=== PATIENT | female | born 1950 | race Caucasian/White ===

== ENCOUNTER → 2017-10-20 | Day surgery (SDC) | payer OTHER, MEDICARE ==
[2008-02-10 09:41] VITALS: BP 140/74
--- NOTE | 2017-10-20 11:13 | Operative Report ---
Operative/Inv Procedure Report Surgery Date: 10/20/17 Name of Procedure: Right partial mastectomy with wire localization and sentinel lymph node biopsy Pre-Operative Diagnosis: Right breast cancer Post-Operative Diagnosis: Same Estimated Blood Loss: less than 50ml Surgeon/Director Of Conservation: Luna Sandra MD Anesthesia: local monitored anesthesi Specimens: [place] lymph node 2, right lumpectomy, cranial margin, caudal margin, medial margin, lateral margin, deep margin, skin margin Operative/Procedure Note Note: Patient is status post a needle biopsy showing invasive lobular cancer. Clinical stage I. She was brought for definitive surgical management. Preoperative lymphoscintigraphy and wire localization was performed and the films reviewed. She is brought to the operating room placed in their anesthesia. The right breast was prepped and draped in a sterile fashion using ChloraPrep. 3 mL of methylene blue diluted with 2 mL of saline was injected in the retroareolar fashion. Incisions were planned in the inframammary fold laterally as well as in the axilla. Marcaine was injected in the area of the proposed incisions. The axilla was approached first. Incision was made and subcutaneous tissue is dissected. Clavipectoral fascia was entered. There was a lymph node identified with counts 20. Additional lymph node had counts of 50. These were excised and marked as sentinel lymph node. There were no other hot, blue, or palpable lymph nodes identified. The breast was then approached. An inframammary incision was made in the area of the wire insertion site. The wire was brought into the incision and the area of concern was grasped using an Allis clamp. A lumpectomy was performed and excised. Specimen was marked for orientation using margin map. Intraoperative x-ray confirmed the presence of the clip in specimen. Additional margins were taken in the cranial, caudal, medial, lateral, deep, and skin positions. Hemostasis was achieved using electrocautery. Clips are used to jigna the margins of the lumpectomy. Deep tissue was proximal made using interrupted Vicryl sutures and the skin was closed using a running Biosyn subcutaneous color stitch. Steri-Strips and sterile dressings were applied and the patient was transferred to the recovery room in satisfactory condition having tolerated the procedure well.
--- NOTE | 2017-10-20 14:47 | MAMMOGRAPHY REPORT ---
EXAMINATION: US PREOPERATIVE LOCALIZATION BREAST, RIGHT MM SINGLE VIEW, RIGHT MM SPECIMEN RADIOGRAPH CLINICAL INFORMATION: 67-year-old female with invasive lobular carcinoma at 9 o'clock, 10 cm from the nipple. Preoperative ultrasound-guided needle localization is requested. TECHNIQUE: After the details of the procedure, as well as the risks, benefits and alternatives to the procedure, were explained to the patient in detail, and all of her questions were answered, preoperative needle localization was performed. Initially, the biopsy proved invasive lobular carcinoma seen at 9 o'clock, 10 cm from the nipple within the right breast is reidentified, 0.5 cm at its maximum dimension. Subsequently, using sterile technique, under local anesthesia (2% 5 mL lidocaine was used), using real time ultrasound guidance, a 5 cm Kopan's needle wire system was advanced into the breast from lateral approach. The needle was removed and the wire deployed. The patient was taken to the mammographic suite and 2 right CC views were obtained. The breasts are heterogeneously dense, which may obscure small masses (ACR BI-RADS breast composition Category c)*. The wire position was considered optimal and no repositioning was performed. The specimen shows the needle and hookwire are delivered intact. The biopsy clip marker and mass are identified. The patient tolerated the procedure well, and was discharged from the department of radiology in good stable condition. The images were appropriately labelled. A worksheet was appropriately filled out and was sent with the patient to the OR. IMPRESSION: Successful ultrasound-guided preoperative needle localization of the right breast invasive lobular carcinoma at 9 o'clock, 10 cm from the nipple. Successful sonographic-guided needle localization of the biopsy proved invasive lobular carcinoma at 9 o'clock, 10 cm from the nipple, without any complications. Results were called to Dr. Sandra in the operating room at the time of imaging. The histology report is pending.
== END ==
LOC: STS 02:25 → CBW.IIU 07:30 → CBW.US 08:00
DX: C50.911 Malignant neoplasm of unspecified site of right female breast (principal); Z17.0 Estrogen receptor positive status [ER+]; G71.0 Muscular dystrophy; J44.9 Chronic obstructive pulmonary disease, unspecified; I10 Essential (primary) hypertension; K22.0 Achalasia of cardia
CPT/HCPCS: 76942; 77065-RT; J0131; J0690; J2001; J2250